=== PATIENT | male | born 1945 | race Caucasian/White ===

== ENCOUNTER 2022-09-17 02:09 | Emergency (ER) | payer OTHER, MEDICARE, SELFPAY ==
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
[2022-09-17 02:12] VITALS: BP 120/70; BP 124/80; PULSE 80; PULSE 84; RESP 16; TEMP 37; O2SAT 98; BMI 24.8
[2022-09-17 03:00] VITALS: BP 114/76; PULSE 83; RESP 18; O2SAT 96
--- OUTSIDE RECORDS SUMMARY | 2022-09-17 03:21 | XMS_ITS | Continuity of Care Document ---
Author Name Unknown Organization [facility] Address [address] [place] [address]- Care Team Providers Care Theatre Program Director Name Role Phone Yovany Estrada MD Primary Care Phys[id number] Date[facility] - 04/07/[address] [address] [place] Attending Physician: Alan Holland MD Admitting Physician: Alan Holland MD Referring Physician: Alan Holland MD Allergies, Adverse Reactions, Alerts No Known Allergies Medications aspirin 81 mg oral delayed release tablet 81 mg, By Mouth, Daily, Take indefinitely, # 30 tablet, Refills 3, Tot. Refills 3, Maintenance, 10/06/20 12:13:00 EDT, Print Requisition, Partial fill upon patient request if the prescription is for a schedule II opioid drug. Start Date: 10/06/20 Status: Ordered aspirin 81 mg oral delayed release tablet 81 mg, By Mouth, Daily, # 90 tablet, Refills 3, Tot. Refills 3, Maintenance, 10/06/20 14:03:00 EDT,Route to Pharmacy Electronically, [facility], Partial fill upon patient request if the prescription is for a schedule II opioid drug. Start Date: 10/06/20 Status: Ordered atorvastatin 40 mg oral tablet 1 tablet = 40 mg, By Mouth, Daily at bedtime, Take indefinitely, # 30 tablet, 3 Refills, Maintenance, 10/06/20 12:13:00 EDT, Tablet, Partial fill upon patient request if the prescription is for a schedule II opioid drug. Start Date: 10/06/20 Status: Ordered atorvastatin 40 mg oral tablet 1 tablet = 40 mg, By Mouth, Daily at bedtime, # 30 tablet, 3 Refills, Maintenance, 10/06/20 14:04:00 EDT, Tablet, [facility], Partial fill upon patient request if the prescription is for a schedule II opioid drug. Start Date: 10/06/20 Status: Ordered metoprolol 25 mg oral tablet 0.5 tablet = 12.5 mg, By Mouth, 2 times a day, # 30 tablet, 1 Refills, Maintenance, Tablet Start Date: 03/31/13 Stop Date: 05/30/13 Status: Ordered One-A-Day Men 50 Plus oral tablet 1 tablet, By Mouth, Daily, # 30 tablet, 6 Refills, Maintenance, 02/05/21 10:28:00 EST, Tablet, [facility], Partial fill upon patient request if the prescription is for a schedule II opioiddrug., 1 tablet By Mouth Daily,x30 days, 179, cm, 1... Start Date: 02/05/21 Stop Date: 09/03/21 Status: Ordered Problem List Condition Effective Dates Status Health Status Inform ant Closed Fracture of One Rib(Confirmed) 12/29/11 Active Abnormal echocardiogram(Confirmed) Active NSTEMI (non-ST elevated myoc ardial infarction)(Confirmed) 03/28/13 Active Pleural effusion, left(Confirmed) 12/29/11 Active TIA (transient ischemic attack)(Confirmed) Active
--- OUTSIDE RECORDS SUMMARY | 2022-09-17 03:21 | XMS_ITS | Continuity of Care Document ---
Author Name Unknown Organization [facility] Address Unknown Care Team Providers Care Superintendent Distribution Name Role Phone Yovany Estrada MD Primary Care Physician Encounter [facility] [place] Date(s): 10/28/20 - 11/27/20 [facility] Attending Physician: Ben Cummings Admitting Physician: Ben Cummings Referring Physician: Ben Cummings Allergies, Adverse Reactions, Alerts Substance Reaction Severity Status NKA Active Medications aspirin 81 mg oral delayed release [...] Maintenance, 10/06/20 14:03:00 EDT,Route to Pharmacy Electronically, [facility], Partial fill upon patient [...] 3 Refills, Maintenance, 10/06/20 14:04:00 EDT, Tablet, [facility], Partial fill upon patient request if the prescription is for a schedule II opioid drug. Start Date: 10/06/20 Status: Ordered metoprolol 25 mg oral tablet 0.5 tablet = 12.5 mg, By Mouth, 2 times a day, # 30 tablet, 1 Refills, Maintenance, Tablet Start Date: 03/31/13 Stop Date: 05/30/13 Status: Ordered Plavix 75 mg oral tablet 75 mg, 1, tablet, By Mouth, Daily, Take for total of 21 days, # 20 tablet, Refills 0, Tot. Refills 0, Maintenance, 10/06/20 12:14:00 EDT, Print Requisition, Partial fill upon patient request if the prescription is for a schedule II opioid drug. Start Date: 10/06/20 Status: Ordered Problem List Condition Effective Dates Status Health Status Inform ant Closed Fracture of One Rib(Confirmed) 12/29/11 Active Pleural effusion, left(Confirmed) 12/29/11 Active TIA (transient ischemic attack)(Confirmed) Active
--- OUTSIDE RECORDS SUMMARY | 2022-09-17 03:21 | XMS_ITS | Continuity of Care Document ---
Author Name Unknown Organization [facility] Address Unknown Care Team Providers Care Infection Control Coordinator Name Role Phone Yovany Estrada MD Primary Care Physician [place] [facility] [place]21 [place] 02/12/21 [facility] Attending Physician: Kuldeep ROBLES, Kimani Referring Physician: Yovany Estrada MD Allergies, Adverse Reactions, Alerts Substance Reaction Severity [...] Maintenance, 10/06/20 14:03:00 EDT,Route to Pharmacy Electronically, [facility], Partial fill upon patient [...] 3 Refills, Maintenance, 10/06/20 14:04:00 EDT, Tablet, [facility], Partial fill upon patient [...] 6 Refills, Maintenance, 02/05/21 10:28:00 EST, Tablet, [facility], Partial fill upon patient request if the [...]
--- OUTSIDE RECORDS SUMMARY | 2022-09-17 03:21 | XMS_ITS | Continuity of Care Document ---
Author Name Unknown Organization [facility] Address [address] [place] [address]- Care Team Providers Care E Commerce Project Manager Name Role Phone Yovany Estrada MD Primary Care Physician [place] [facility] [place] 01/06/21 - 02/05/21 [facility] [address] [place] [address]- Attending Physician: Ben Cummings Admitting Physician: Ben [...] Maintenance, 10/06/20 14:03:00 EDT,Route to Pharmacy Electronically, [facility], Partial fill upon patient [...] 3 Refills, Maintenance, 10/06/20 14:04:00 EDT, Tablet, [facility], Partial fill upon patient request if [...] 6 Refills, Maintenance, 02/05/21 10:28:00 EST, Tablet, [facility], Partial fill upon patient [...]
--- OUTSIDE RECORDS SUMMARY | 2022-09-17 03:21 | XMS_ITS | Continuity of Care Document ---
Author Name Unknown Organization [facility] Address [address] [place] [address]- Care Team Providers Care Photolithographer Name Role Phone Yovany Estrada MD Primary Care Physician [phone] [place] [facility] [place] Date(s): 11/13/20 - 12/13/20 [facility] [address] [place] [address] [place] Allergies, Adverse Reactions, Alerts Substance Reaction Severity [...] Maintenance, 10/06/20 14:03:00 EDT,Route to Pharmacy Electronically, [facility], Partial fill upon patient [...] 3 Refills, Maintenance, 10/06/20 14:04:00 EDT, Tablet, [facility], Partial fill upon patient [...]
--- OUTSIDE RECORDS SUMMARY | 2022-09-17 03:21 | XMS_ITS | Continuity of Care Document ---
Author Name Unknown Organization [facility] Address [address] [address]- Care Team Providers Care Lap Winding Machine Operator Name Role Phone Yovany Estrada MD Primary Care Physician Encounter [facility] [place]CT R [id number] Date(s): 02/02/21 - 03/04/21 [facility] [address] [address]- Attending Physician: Ben Cummings Admitting Physician: Ben Cummings Referring Physician: Admtr ArLizz Allergies, Adverse Reactions, Alerts Substance Reaction Severity [...] Maintenance, 10/06/20 14:03:00 EDT,Route to Pharmacy Electronically, [facility], Partial fill upon patient request if [...] 3 Refills, Maintenance, 10/06/20 14:04:00 EDT, Tablet, [facility], Partial fill upon patient [...] 6 Refills, Maintenance, 02/05/21 10:28:00 EST, Tablet, [facility], Partial fill upon patient [...]
--- OUTSIDE RECORDS SUMMARY | 2022-09-17 03:21 | XMS_ITS | Continuity of Care Document ---
Author Name Unknown Organization [facility] Address [address] [address]- Care Team Providers Care Resident Services Supervisor Name Role Phone Yovany Estrada MD Primary Care Physician [phone] [place] [facility] [place] 10/30/20 - 11/29/20 [facility] [address] [address]- Attending Physician: Ben Cummings Admitting Physician: Ben Cummings Referring Physician: Admtr, Ar8 Allergies, Adverse Reactions, Alerts Substance Reaction Severity [...] Maintenance, 10/06/20 14:03:00 EDT,Route to Pharmacy Electronically, [facility], Partial fill upon patient [...] 3 Refills, Maintenance, 10/06/20 14:04:00 EDT, Tablet, [facility], Partial fill upon patient [...]
--- OUTSIDE RECORDS SUMMARY | 2022-09-17 03:21 | XMS_ITS | Continuity of Care Document ---
Author Name Unknown Organization [facility] Address Unknown Care Team Providers Care Core Cutter Name Role Phone Yovany Estrada MD Primary Care Physician [phone] En[facility] [place] Date(s): 02/05/21 - 03/07/21 [facility] Attending Physician: Ben Cummings Admitting [...] Maintenance, 10/06/20 14:03:00 EDT,Route to Pharmacy Electronically, [facility], Partial fill upon patient [...] 3 Refills, Maintenance, 10/06/20 14:04:00 EDT, Tablet, [facility], Partial fill upon patient [...] 6 Refills, Maintenance, 02/05/21 10:28:00 EST, Tablet, [facility] 1966, Partial fill upon patient request [...]
--- OUTSIDE RECORDS SUMMARY | 2022-09-17 03:22 | XMS_ITS | Continuity of Care Document ---
Author Name Unknown Organization [facility] Address Unknown Care Team Providers Care Plastic Fixture Builder Name Role Phone Yovany Estrada MD Primary Care Physician [phone] [place] [facility] [place](s): 01/26/21 - 02/25/21 [facility] Allergies, Adverse Reactions, Alerts Substance Reaction Severity [...] Maintenance, 10/06/20 14:03:00 EDT,Route to Pharmacy Electronically, [facility], Partial fill upon patient [...] 3 Refills, Maintenance, 10/06/20 14:04:00 EDT, Tablet, [facility], Partial fill upon patient [...] 6 Refills, Maintenance, 02/05/21 10:28:00 EST, Tablet, [facility] 1966, Partial fill upon patient request [...]
--- OUTSIDE RECORDS SUMMARY | 2022-09-17 03:22 | XMS_ITS | Continuity of Care Document ---
Author Name Unknown Organization [facility] Address [address] [place] [address]- Care Team Providers Care Sales Support Administrator Name Role Phone Yovany Estrada MD Primary Care Physician [phone] En[place] [facility] [place] Date(s): 03/23/21 - 04/22/21 [facility] [address] [place] [address]- Attending Physician: Ben Cummings Admitting Physician: Ben Cummings Referring Physician: Ben Cummings Allergies, Adverse Reactions, Alerts No Known Allergies [...] 6 Refills, Maintenance, 02/05/21 10:28:00 EST, Tablet, [facility], Partial fill upon patient request [...]
--- OUTSIDE RECORDS SUMMARY | 2022-09-17 03:22 | XMS_ITS | Continuity of Care Document ---
Author Name Unknown Organization [facility] Address Unknown Care Team Providers Care Soil Expert Name Role Phone Yovany Estrada MD Primary Care Physician Encounter [facility] [place]CT R [id number] Date(s): 01/25/21 - 02/24/21 [facility] Attending Physician: Ben Cummings Admitting Physician: [...] Maintenance, 10/06/20 14:03:00 EDT,Route to Pharmacy Electronically, [facility], Partial fill upon patient request [...] 3 Refills, Maintenance, 10/06/20 14:04:00 EDT, Tablet, [facility], Partial fill upon patient request [...] 6 Refills, Maintenance, 02/05/21 10:28:00 EST, Tablet, [facility] 1966, Partial fill upon patient [...]
--- OUTSIDE RECORDS SUMMARY | 2022-09-17 03:22 | XMS_ITS | Continuity of Care Document ---
Author Name Unknown Organization [facility] Address [address] [place] [address]- Care Team Providers Care Body Fitter Name Role Phone Yovany Estrada MD Primary Care Physician [phone] [place] [facility] [place] Date(s): 02/20/21 - 04/22/21 [facility] [address] [place] [address]- Attending Physician: Shayy Bhatia NP Admitting Physician: Shayy Bhatia NP Referring Physician: Yovany Estrada MD Allergies, Adverse Reactions, Alerts No Known [...] 10/06/20 14:03:00 EDT,Route to Pharmacy Electronically, [facility], Partial fill upon patient [...] Refills, Maintenance, 10/06/20 14:04:00 EDT, Tablet, [facility], Partial fill upon patient request [...] Refills, Maintenance, 02/05/21 10:28:00 EST, Tablet, [facility], Partial fill upon patient request [...]
--- OUTSIDE RECORDS SUMMARY | 2022-09-17 03:22 | XMS_ITS | Continuity of Care Document ---
Author Name Unknown Organization [facility] Address [address] [place] [address]- Care Team Providers Care Porcelain Technician Name Role Phone Meera ROBLES, Joey Primary Care Physician [place] [facility] [place] 10/04/20 - 10/06/[address] [address] Encounter Diagnosis Stroke-like symptoms(Final) - 10/04/20 Discharge Disposition: A-D/C Home Attending Physician: Christiano ROBLES, Frank Burgos Admitting Physician: Tahmina Elaine MD Referring Physician: Not on Staff, Referring MD Allergies, Adverse Reactions, Alerts Substance Reaction [...] Maintenance, 10/06/20 14:03:00 EDT,Route to Pharmacy Electronically, [facility], Partial fill upon patient [...] 3 Refills, Maintenance, 10/06/20 14:04:00 EDT, Tablet, [facility], Partial fill upon patient request if the prescription is for a schedule II opioid drug. Start Date: 10/06/20 Status: Ordered ibuprofen 800 mg oral tablet 1 tablet = 800 mg, By Mouth, 3 times a day, # 21 tablet, 0 Refills, Maintenance, Tablet Start Date: 12/29/11 Stop Date: 01/05/12 Status: Ordered metoprolol 25 mg oral tablet [...] opioid drug. Start Date: 10/06/20 Status: Ordered Plavix 75 mg oral tablet 75 mg, 1, tablet, By Mouth, Daily, # 20 tablet, Refills 0, Tot. Refills 0, Maintenance, 10/06/20 14:03:00 EDT, Route to Pharmacy Electronically, [facility], Partial fill upon patient request if the prescription is for a schedule II opioi... Start Date: 10/06/20 Stop Date: 10/26/20 Status: Ordered Problem List Condition Effective Dates Status Health Status Inform ant Closed Fracture of One Rib(Confirmed) 12/29/11 Active Pleural effusion, left(Confirmed) 12/29/11 Active TIA (transient ischemic attack)(Confirmed) Active Results Radiology Reports * Exam Date Time Procedure Performing Provider Status 10/04/20 8:35 PM Chest Portable Cristo Baca; Auth (Ve rified) Notes: (Chest Portable) Reason For Exam: Shortness of Breath RESULT: Chest Portable Chest Portable Hx of Present Illness: Stroke Alert; Reason: Shortness of Breath; Clinical Question(s): CHF COMPARISON: 03/28/1939 FINDINGS: LINES AND TUBES: None. LUNGS AND PLEURA: Patchy opacity in the medial left lung base behind the heart. Otherwise clear lungs. No convincing effusion. No pneumothorax. HEART, MEDIASTINUM AND KENYON: Heart is normal in size. Normal upper mediastinal and hilar contour. BONES AND SOFT TISSUES: No acute abnormality. IMPRESSION: Left lower lobe pneumonia or atelectasis. A Document Only message has been documented in the [employer] system Pablito Pablo DO on 10/04/2020 8:41 PM, Message ID [id number]. WSN: [id number] Ordering Physician: Lemuel Pablo Dictated By: Ron Mcdaniel MD Dictated Date/Time: 10/04/20 8:41 pm Reviewed By: Ron Mcdaniel MD Signed By: Ron Mcdaniel MD Signed Date/Time: 10/04/20 8:41 pm Transcribed By: PAGE Transcribed Date/Time: 10/04/20 8:39 pm Vital Signs Most recent to oldest [Reference Range]: 1 2 3 Oxygen Saturation [94-100 %] 92 % *L* (10/06/20 1:00 PM) 94 % (10/06/20 12:00 PM) 95 % (10/06/20 11:00 AM) Pulse Rate [55-90 bpm] 60 bpm (10/05/20 12:28 AM) 73 bpm (10/04/20 11:37 PM) 62 bpm (10/04/20 9:28 PM) Blood Pressure [90-138/55-84 mm Hg] 142/95mm Hg *H* (10/06/20 12:00 PM) 142/95mm Hg *H* (10/06/20 11:00 AM) 111/79mm Hg (10/06/20 10:00 AM) Respiratory Rate [16-30 br/min] 20 br/min (10/06/20 1:00 PM) 23 br/min (10/06/20 12:00 PM) 24 br/min (10/06/20 12:00 PM) Temperature [96.8-100.4 DegF] 98.3 DegF (10/06/20 12:00 PM) 98.1 DegF (10/06/20 8:00 AM) 98.4 DegF (10/06/20 4:00 AM) Liters per Minute 2 L/min (10/06/20 8:00 AM) 2 L/min (10/06/20 6:00 AM) 2 L/min (10/06/20 5:00 AM) Mode of Delivery (Oxygen) Room air (10/06/20 12:00 PM) Room air (10/06/20 11:00 AM) Room air (10/06/20 10:00 AM) Blood pressure sites Arm, right (10/06/20 8:00 AM) Arm, right (10/06/20 6:00 AM) Arm, right (10/06/20 4:00 AM) Temperature Route Oral (10/06/20 12:00 PM) Oral (10/06/20 8:00 AM) Oral (10/05/20 8:00 PM)
--- OUTSIDE RECORDS SUMMARY | 2022-09-17 03:22 | XMS_ITS | Continuity of Care Document ---
Author Name Unknown Organization [facility] Address [address] [address]- Care Team Providers Care Children'S Minister Name Role Phone Yovany Estrada MD Primary Care Physician [id number] Date[facility] 10/30/20 - 11/06/20 [facility] [address] [address]- Attending Physician: Kimani Light MD Admitting Physician: Kimani Light MD Referring Physician: Kimani Light MD Allergies, Adverse Reactions, Alerts Substance Reaction [...] Maintenance, 10/06/20 14:03:00 EDT,Route to Pharmacy Electronically, [facility], Partial fill upon [...] 3 Refills, Maintenance, 10/06/20 14:04:00 EDT, Tablet, [facility], Partial fill upon [...]
--- OUTSIDE RECORDS SUMMARY | 2022-09-17 03:22 | XMS_ITS | Continuity of Care Document ---
Author Name Unknown Organization [facility] Address [address] [address]- Care Team Providers Care Cracking Unit Operator Name Role Phone Yovany Estrada MD Primary Care Physician Encounter [facility] [place] Date(s): 11/13/20 - 12/13/20 [facility] [address] [address] [place] Allergies, Adverse Reactions, Alerts Substance Reaction [...] Maintenance, 10/06/20 14:03:00 EDT,Route to Pharmacy Electronically, [facility], Partial fill upon patient [...] 3 Refills, Maintenance, 10/06/20 14:04:00 EDT, Tablet, [facility], Partial fill upon patient [...]
--- OUTSIDE RECORDS SUMMARY | 2022-09-17 03:22 | XMS_ITS | Continuity of Care Document ---
Author Name Unknown Organization [facility] Address [address] [place] [address]- Care Team Providers Care Cco Name Role Phone Yovany Estrada MD Primary Care Physician Encounter [facility] [place] Date(s): 11/19/20 - 12/19/20 [facility] [address] [place] [address]- Attending Physician: Ben Cummings Admitting Physician: Ben [...] Maintenance, 10/06/20 14:03:00 EDT,Route to Pharmacy Electronically, [facility], Partial fill upon patient [...] 3 Refills, Maintenance, 10/06/20 14:04:00 EDT, Tablet, [facility], Partial fill upon patient [...]
--- OUTSIDE RECORDS SUMMARY | 2022-09-17 03:22 | XMS_ITS | Continuity of Care Document ---
Author Name Unknown Organization [facility] Address [address] [place] [address]- Care Team Providers Care Cullet Crusher And Washer Name Role Phone Yovany Estrada MD Primary Care Physician Encounter [facility] Date(s): 10/15/20 - 12/06/[address] [address] Attending Physician: Josué Berman Admitting Physician: Josué Berman Referring Physician: Josué Berman Allergies, Adverse Reactions, Alerts Substance Reaction Severity [...] Maintenance, 10/06/20 14:03:00 EDT,Route to Pharmacy Electronically, [facility], Partial fill upon patient [...] 3 Refills, Maintenance, 10/06/20 14:04:00 EDT, Tablet, [facility], Partial fill upon patient [...]
--- OUTSIDE RECORDS SUMMARY | 2022-09-17 03:22 | XMS_ITS | Continuity of Care Document ---
Author Name Unknown Organization [facility] Address [address] [place] [address]- Care Team Providers Care Deli Associate Name Role Phone Yovany Estrada MD Primary Care Physician En[place] [facility] [place] Date(s): 10/15/20 - 12/19/20 [facility] [address] [place] [address]- Attending Physician: Josué Berman Admitting Physician: Josué Berman Allergies, Adverse Reactions, Alerts [...] Maintenance, 10/06/20 14:03:00 EDT,Route to Pharmacy Electronically, [facility], Partial fill upon patient [...] 3 Refills, Maintenance, 10/06/20 14:04:00 EDT, Tablet, [facility], Partial fill upon patient [...]
--- OUTSIDE RECORDS SUMMARY | 2022-09-17 03:22 | XMS_ITS | Continuity of Care Document ---
Author Name Unknown Organization [facility] Address Unknown Care Team Providers Care Implementation Manager Name Role Phone Yovany Estrada MD Primary Care Physician En[place] [facility] [place] Date(s): 10/28/20 - 11/04/20 [facility] Attending Physician: Kuldeep ROBLES, Kimani [...] Maintenance, 10/06/20 14:03:00 EDT,Route to Pharmacy Electronically, [facility], Partial fill upon patient [...] 3 Refills, Maintenance, 10/06/20 14:04:00 EDT, Tablet, [facility], Partial fill upon patient [...]
--- OUTSIDE RECORDS SUMMARY | 2022-09-17 03:22 | XMS_ITS | Continuity of Care Document ---
Author Name Unknown Organization [facility] Address [address] [address]- Care Team Providers Care Bog Worker Name Role Phone Yovany Estrada MD Primary Care Physician En[facility] [place] ACCT R [id number] Date(s): 02/02/21 - 02/09/21 [facility] [address] [address]- Attending Physician: Kimani Light MD Admitting Physician: Kimani Light MD Referring Physician: Kmiani Light MD Allergies, Adverse Reactions, Alerts Substance [...] Maintenance, 10/06/20 14:03:00 EDT,Route to Pharmacy Electronically, [facility], Partial fill upon [...] 3 Refills, Maintenance, 10/06/20 14:04:00 EDT, Tablet, [facility], Partial fill upon [...] Refills, Maintenance, 02/05/21 10:28:00 EST, Tablet, [facility] 1967, Partial fill upon patient [...]
[2022-09-17 04:00] VITALS: BP 120/86; PULSE 82; RESP 17; O2SAT 96
--- NOTE | 2022-09-17 04:04 | ECG_ITS ---
Test Reason : CHEST PAIN Blood Pressure : / mmHG Vent. Rate : 079 BPM Atrial Rate : 000 BPM P-R Int : 000 ms QRS Dur : 126 ms QT Int : 382 ms P-R-T Axes : 000 -23 005 degrees QTc Int : 438 ms Atrial fibrillation Left bundle branch block Abnormal ECG No previous ECGs available Referred By: Esperanza Mascorro Electronically Signed By:Stalin Rodríguez Referred By: Esperanza Mascorro Electronically Signed By:
--- NOTE | 2022-09-17 04:20 | PC.NURSE ---
Patient refusing morphine at this time.
[2022-09-17 04:30] LABS: MANUAL DIFF FLAG NO
[2022-09-17 04:31] LABS: Basophils Percent Auto 0.1 % (0-2); Eosinophils Percent Auto 0.3 % (0-4); Hematocrit 47.5 % (42.0-52.0); Hemoglobin 16.2 g/dl (14.0-18.0); Imm Gran Abs Auto 0.04 X10*3/uL (0.00-0.03); Imm Gran Pct Auto 0.4 % (0.0-0.4); Lymphocytes Absolute Auto 1.3 X10*3/uL (1.2-4.9); Lymphocytes Percent Auto 14.4 % (20-40); Mean Corpuscular HGB Conc 34.1 g/dl (31.0-36.0); Mean Corpuscular Hemoglobin 29.8 pg (27.0-33.0); Mean Corpuscular Volume 87.5 fL (80.0-98.0); Monocytes Absolute Auto 0.7 X10*3/uL (0.1-1.2); Monocytes Percent Auto 7.7 % (2-11); Neutrophils Absolute Auto 6.9 x10*3/uL (2.0-8.3); Neutrophils Percent Auto 77.1 % (45-73); Platelet Count 179 X10*3/uL (160-400); Red Blood Count 5.43 X10*6/uL (4.60-5.80); Red Cell Distribution Width 13.2 % (11.0-16.0)
[2022-09-17 04:46] LABS: Alanine Aminotransferase 10 U/L (0-40); Albumin Level 4.2 g/dL (3.5-5.0); Alkaline Phosphatase 78 U/L (39-117); Anion Gap 12 (12-20); Aspartate Amino Transferase 16 U/L (5-37); Bilirubin Direct 0.4 mg/dL (0.0-0.5); Bilirubin Total 1.1 mg/dL (0.0-1.0); Blood Urea Nitrogen 19 mg/dL (9-16); Calcium 9.5 mg/dL (8.4-10.2); Carbon Dioxide 23 mmol/L (22-29); Chloride 110 mmol/L (96-108); Creatinine Clr Calc Pharmacy 73.4; Estimated Glomerular Filt Rate > 60; Glucose Random 117 mg/dL (60-115); Lipase 22 U/L (8-78); Potassium 3.9 mmol/L (3.3-5.1); Sodium 141 mmol/L (135-145); Total Protein 6.8 g/dL (6.5-8.0)
[2022-09-17 04:52] LABS: Troponin-I High Sensitivity 4.6 ng/L (<3.5-35.0)
[2022-09-17 05:00] VITALS: BP 105/76; PULSE 77; RESP 16; O2SAT 96
[2022-09-17] MEDS: iohexoL 350 MG/ML 100 ML INFUS..BTL 85 ML IV (05:09)
--- NOTE | 2022-09-17 06:19 | MHC.EDTECH ---
Call out to [facility] Transfer line @[phone], gave demographics to Lianne who is paging trauma.
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
--- NOTE | 2022-09-17 06:25 | MHC.EDTECH ---
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 Belongings list completed for possible transfer, patient has 246.00 dollars in sapp,two pairs of glasses,cellphone and clothing PCT Liyah at bedside with this tech and witnessed amount of money.. All belongings on stretcher with patient. RN aware
[2022-09-17 06:31] VITALS: BP 119/82; PULSE 88; RESP 20; TEMP 36.6; O2SAT 95
[2022-09-17 06:36] VITALS: BP 125/86; PULSE 78; RESP 20; O2SAT 95
--- NOTE | 2022-09-17 06:36 | PC.NURSE ---
Report called to [phone] given to Faith GATICA verbalized no questions and ready to recive patient.
--- NOTE | 2022-09-17 06:47 | MHC.EDTECH ---
Call out to [facility] @[phone] for ALS STAT transport to [facility], spoke to Sancho from dispatch who will send ALS truck
== END 2022-09-17 07:02 | disposition short-term general hospital (02) ==
PROVIDERS: Emergency Provider Emergency Medicine
DX: S26.01 Contusion of heart with hemopericardium (principal); S22.22XA Fracture of body of sternum, initial encounter for closed fracture; V43.52XA Car driver injured in collision with other type car in traffic accident, initial encounter; Y93.89 Activity, other specified; Y92.414 Local residential or business street as the place of occurrence of the external cause; Y99.9 Unspecified external cause status
CPT/HCPCS: 36415; 70450; 71046; 71260; 72125; 74177; 80048; 80076; 83690; 84484; 85025; 93005; 99285; Q9967